=== PATIENT | female | born 1935 | race Caucasian/White ===

== ENCOUNTER 2024-02-14 07:16 | Inpatient (IN) | payer OTHER ==
[~2024-02-14] VITALS: Ht 149.9 cm; Wt 50.3 kg
[2024-02-14] MEDS ORDERED: ONDANSETRON HCL/PF 4 MG/2 ML VIAL ONE ×2 (08:09→08:13)
[2024-02-14] MEDS: ONDANSETRON HCL/PF - ER 4 MG/2 ML VIAL IV ONE (08:14)
[2024-02-14] MEDS: IV NS 0.9% 1,000 ML BAG IV ONE (08:14)
[2024-02-14 08:18] LABS: BASOPHILS % (AUTO) 0.4 % (0.0-2.0); EOSINOPHILS % (AUTO) 0.1 % (0.0-6.0); HEMATOCRIT 41 % (33-45); HEMOGLOBIN 13.7 g/dL (11.5-14.8); LYMPHOCYTES # (AUTO) 0.6 K/uL (0.8-4.8); LYMPHOCYTES % (AUTO) 9.3 % (20.0-44.0); MEAN CORPUSCULAR HEMOGLOBIN 29 PG (26.0-33.0); MEAN CORPUSCULAR HGB CONC 33 g/dl (31.0-36.0); MEAN CORPUSCULAR VOLUME 86 fL (82-100); NEUTROPHILS # (AUTO) 5.2 K/uL (1.8-8.9); NEUTROPHILS % (AUTO) 76.2 % (43.0-81.0); PLATELET COUNT (AUTO) 234 K/uL (150-450); RED BLOOD CELL COUNT(AUTO) 4.81 MIL/uL (4.0-5.2); RED CELL DISTRIBUTION WIDTH 14.8 % (11.5-15.0); WHITE BLOOD COUNT (AUTO) 6.8 K/uL (4.3-11.0)
[2024-02-14 08:27] LABS: CALCIUM, SERUM 8.5 mg/dL (8.5-10.1); CARBON DIOXIDE 31 mmol/L (21-32); CHLORIDE 92 mmol/L (98-107); CREATININE 0.9 mg/dL (0.6-1.3); GLUCOSE 106 mg/dL (74-106); POTASSIUM 2.9 mmol/L (3.5-5.1); SODIUM SERUM 132 mmol/L (136-145); UREA NITROGEN, BLOOD 18 mg/dL (7-18)
[2024-02-14] MEDS ORDERED: TRAZ-182 PO (08:34)
[2024-02-14] MEDS ORDERED: ROSU5TAB PO (08:34)
[2024-02-14] MEDS ORDERED: LATA2.5D2 EACHEYE (08:34)
[2024-02-14] MEDS ORDERED: HYDR25TA4 PO (08:34)
[2024-02-14] MEDS ORDERED: DORZ10DR13 EACHEYE (08:35)
[2024-02-14] MEDS ORDERED: PANT40TA2 PO (08:35)
[2024-02-14] MEDS ORDERED: ACET-868 PO (08:35)
[2024-02-14] MEDS ORDERED: DORZ10DR11 EACHEYE (08:35)
[2024-02-14] MEDS ORDERED: PROP15DR EACHEYE (08:35)
[2024-02-14 08:39] LABS: NT-PRO BNP 646 pg/mL (0-125)
[2024-02-14 09:56] LABS: APPEARANCE,URINE CLEAR (CLEAR); BILIRUBIN,URINE NEGATIVE (NEGATIVE); BLOOD, URINE NEGATIVE Ery/uL (NEGATIVE); COLOR,URINE YELLOW (YELLOW); KETONES,URINE NEGATIVE (NEGATIVE); LEUKOCYTE ESTERASE ,URINE NEGATIVE (NEGATIVE); NITRITE, URINE NEGATIVE (NEGATIVE); PROTEIN,URINE NEGATIVE (NEGATIVE); UGLUCOSE NEGATIVE (NEGATIVE); UROBILINOGEN,URINE 0.2 EU/dL (0.2)
[2024-02-14] MEDS ORDERED: IOHEXOL-300 100 ML VIAL IV ONE (09:58)
[2024-02-14] MEDS ORDERED: IV NS 0.9% 250 ML IV ONE (10:00)
[2024-02-14] MEDS ORDERED: POTASSIUM CL. PREMIX PERIPHER. 50 ML ONE (10:19)
[2024-02-14] MEDS: POTASSIUM CL. PREMIX PERIPHER. 50 ML IV SCH (10:33)
[2024-02-14] MEDS ORDERED: ONDANSETRON HCL/PF 4 MG/2 ML VIAL IVP PRN (12:00)
[2024-02-14] MEDS ORDERED: Z GUARD REMEDY 4 OZ OINT TP PRN (12:00)
[2024-02-14] MEDS ORDERED: MAG HYDROX/AL HYDROX/SIMETH 30 ML UDC PO PRN (12:00)
[2024-02-14] MEDS ORDERED: CEFTRIAXONE 1 G in IV D5W 50 ML IV SCH (12:00)
[2024-02-14] MEDS ORDERED: MAGNESIUM HYDROXIDE 30 ML UDC PO PRN (12:00)
[2024-02-14] MEDS: AZITHROMYCIN 500 MG in IV D5W 250 ML IV SCH (12:44)
[2024-02-14] MEDS: ENOXAPARIN SODIUM 30 MG/0.3 ML DISP.SYRIN SQ SCH (12:44)
[2024-02-14] MEDS: CEFTRIAXONE 1 G in IV D5W 50 ML IV SCH (15:01)
[2024-02-14 16:00] VITALS: BP 118/61; TEMP 98.1; O2SAT 95
[2024-02-14] MEDS: IV D5/0.45 NACL 1,000 ML IV PRN (17:12)
[2024-02-14 20:00] VITALS: BP 126/71; TEMP 98.4; O2SAT 98
[2024-02-14] MEDS: TIMOLOL MAL/DORZOLAM HCL OPHTH 10 ML BOTTLE EACHEYE SCH (20:30)
[2024-02-14] MEDS ORDERED: TIMOLOL MAL/DORZOLAM HCL OPHTH 10 ML BOTTLE EACHEYE SCH (20:30)
[2024-02-14] MEDS ORDERED: TRAZODONE 50 MG TABLET PO PRN (20:30)
[2024-02-14] MEDS: LATANOPROST EYE DROP 0.005% 2.5 ML BOTTLE EACHEYE SCH (20:30)
[2024-02-14] MEDS ORDERED: ACETAMINOPHEN 325 MG TABLET PO PRN (20:30)
[2024-02-14] MEDS: ZOLPIDEM TARTRATE 5 MG TABLET PO PRN (21:59)
[2024-02-15 03:15] VITALS: BP 128/71; TEMP 98; O2SAT 95
[2024-02-15] MEDS: ACETAMINOPHEN 325 MG TABLET PO PRN (04:16)
[2024-02-15 06:00] LABS: BASOPHILS % (AUTO) 0.3 % (0.0-2.0); EOSINOPHILS % (AUTO) 0.7 % (0.0-6.0); HEMATOCRIT 37 % (33-45); HEMOGLOBIN 12.3 g/dL (11.5-14.8); LYMPHOCYTES # (AUTO) 0.9 K/uL (0.8-4.8); LYMPHOCYTES % (AUTO) 19.8 % (20.0-44.0); MEAN CORPUSCULAR HEMOGLOBIN 28 PG (26.0-33.0); MEAN CORPUSCULAR HGB CONC 33 g/dl (31.0-36.0); MEAN CORPUSCULAR VOLUME 86 fL (82-100); MONOCYTES # (AUTO) 0.8 K/uL (0.1-1.30); MONOCYTES % (AUTO) 19.2 % (2.0-12.0); NEUTROPHILS # (AUTO) 2.6 K/uL (1.8-8.9); PLATELET COUNT (AUTO) 214 K/uL (150-450); RED BLOOD CELL COUNT(AUTO) 4.34 MIL/uL (4.0-5.2); RED CELL DISTRIBUTION WIDTH 15.2 % (11.5-15.0); WHITE BLOOD COUNT (AUTO) 4.3 K/uL (4.3-11.0)
[2024-02-15 06:26] LABS: CALCIUM, SERUM 7.9 mg/dL (8.5-10.1); CARBON DIOXIDE 29 mmol/L (21-32); CHLORIDE 100 mmol/L (98-107); CREATININE 0.8 mg/dL (0.6-1.3); GLUCOSE 88 mg/dL (74-106); PHOSPHORUS 3.4 mg/dL (2.5-4.9); POTASSIUM 3.1 mmol/L (3.5-5.1); SODIUM SERUM 136 mmol/L (136-145); UREA NITROGEN, BLOOD 11 mg/dL (7-18)
[2024-02-15 07:44] LABS: BASOPHILS % (MANUAL) 0 % (0.0-2.0); EOSINOPHILS % (MANUAL) 0 % (0-4); LYMPHOCYTES % (MANUAL) 17 % (16-48); MONOCYTES % (MANUAL) 18 % (0-11.0); NEUTROPHILS % (MANUAL) 65 (42-76); PLATELET ESTIMATE ADEQUATE; STOMATOCYTES 1+
[2024-02-15 08:00] VITALS: BP 116/53; TEMP 97.5; O2SAT 93
[2024-02-15] MEDS: PANTOPRAZOLE 40 MG TABLET.DR PO SCH (08:05)
[2024-02-15] MEDS: HYDROCHLOROTHIAZIDE 25 MG TABLET PO SCH (09:00)
[2024-02-15] MEDS: POTASSIUM CHLORIDE 20 MEQ TAB.PRT.SR PO SCH (10:08)
[2024-02-15] MEDS: METOCLOPRAMIDE HCL 10 MG TABLET PO SCH (11:16)
[2024-02-15] MEDS: AZITHROMYCIN 250 MG TABLET PO SCH (11:19)
[2024-02-15 16:00] VITALS: BP_SYST 127; BP_SYST 150; BP_DIAS 113; BP_DIAS 68; TEMP 97.9; O2SAT 95
[2024-02-15] MEDS ORDERED: LOPERAMIDE HCL (2 MG CAP) 2 MG CAPSULE PO PRN (16:30)
[2024-02-15] MEDS: LOPERAMIDE HCL (2 MG CAP) 2 MG CAPSULE PO ONE (16:35)
[2024-02-15 20:00] VITALS: BP 130/54; TEMP 98.8; O2SAT 100
[2024-02-16 08:36] VITALS: BP 136/62; TEMP 98.5; O2SAT 94
[2024-02-16 09:31] LABS: BASOPHILS % (AUTO) 0.3 % (0.0-2.0); EOSINOPHILS # (AUTO) 0.1 K/uL (0.0-0.7); EOSINOPHILS % (AUTO) 1.4 % (0.0-6.0); HEMATOCRIT 41 % (33-45); HEMOGLOBIN 13.2 g/dL (11.5-14.8); LYMPHOCYTES # (AUTO) 0.8 K/uL (0.8-4.8); LYMPHOCYTES % (AUTO) 17.1 % (20.0-44.0); MEAN CORPUSCULAR HEMOGLOBIN 28 PG (26.0-33.0); MEAN CORPUSCULAR HGB CONC 33 g/dl (31.0-36.0); MEAN CORPUSCULAR VOLUME 87 fL (82-100); MONOCYTES # (AUTO) 0.6 K/uL (0.1-1.30); MONOCYTES % (AUTO) 13.4 % (2.0-12.0); NEUTROPHILS # (AUTO) 3.1 K/uL (1.8-8.9); NEUTROPHILS % (AUTO) 67.8 % (43.0-81.0); PLATELET COUNT (AUTO) 222 K/uL (150-450); RED CELL DISTRIBUTION WIDTH 14.9 % (11.5-15.0); WHITE BLOOD COUNT (AUTO) 4.5 K/uL (4.3-11.0)
[2024-02-16 09:41] LABS: CALCIUM, SERUM 8.4 mg/dL (8.5-10.1); CARBON DIOXIDE 29 mmol/L (21-32); CHLORIDE 98 mmol/L (98-107); CREATININE 0.8 mg/dL (0.6-1.3); GLUCOSE 105 mg/dL (74-106); POTASSIUM 3.3 mmol/L (3.5-5.1); SODIUM SERUM 134 mmol/L (136-145); UREA NITROGEN, BLOOD 9 mg/dL (7-18)
[2024-02-16] MEDS: POTASSIUM CHLORIDE 20 MEQ TAB.PRT.SR PO ONE (09:56)
[2024-02-16] MEDS: LANOLIN/MIN OIL/PETROLAT,WHT 3.5 GM TUBE EACHEYE SCH (11:33)
[2024-02-16 16:04] VITALS: BP 146/62; TEMP 98.4; O2SAT 94
[2024-02-16] MEDS: BENZONATATE 100 MG CAPSULE PO PRN (16:16)
[2024-02-16] MEDS: ENSURE ENLIVE 237 ML LIQUID (VANILLA) PO SCH (17:40)
[2024-02-16 20:00] VITALS: BP 115/45; TEMP 98.8; O2SAT 95
[2024-02-17 09:20] VITALS: BP 134/83; TEMP 97.9; O2SAT 96
[2024-02-17] MEDS: Potassium Chloride 20 MEQ in IV D5/ 0.9% NACL 1,000 ML IV SCH (09:52)
[2024-02-17] MEDS ORDERED: BARIUM SULFATE 98% 135 ML SUSP.RECON PO ONE (14:45)
[2024-02-17] MEDS ORDERED: SIMETHICONE/SOD BICARB/CIT AC 1 EACH GRAN.EF.PK PO ONE (14:51)
[2024-02-17 16:31] VITALS: BP 163/66; TEMP 97.5; O2SAT 94
[2024-02-17 20:00] VITALS: BP 139/56; TEMP 98.6; O2SAT 95
[2024-02-18 10:44] VITALS: BP 134/52; TEMP 97.3; O2SAT 94
[2024-02-18 11:29] LABS: BASOPHILS % (AUTO) 0.4 % (0.0-2.0); EOSINOPHILS % (AUTO) 1.1 % (0.0-6.0); HEMATOCRIT 40 % (33-45); HEMOGLOBIN 13.1 g/dL (11.5-14.8); LYMPHOCYTES # (AUTO) 0.9 K/uL (0.8-4.8); LYMPHOCYTES % (AUTO) 23.4 % (20.0-44.0); MEAN CORPUSCULAR HEMOGLOBIN 29 PG (26.0-33.0); MEAN CORPUSCULAR HGB CONC 33 g/dl (31.0-36.0); MEAN CORPUSCULAR VOLUME 87 fL (82-100); MONOCYTES # (AUTO) 0.5 K/uL (0.1-1.30); MONOCYTES % (AUTO) 13.5 % (2.0-12.0); NEUTROPHILS # (AUTO) 2.4 K/uL (1.8-8.9); NEUTROPHILS % (AUTO) 61.6 % (43.0-81.0); PLATELET COUNT (AUTO) 205 K/uL (150-450); RED BLOOD CELL COUNT(AUTO) 4.58 MIL/uL (4.0-5.2); RED CELL DISTRIBUTION WIDTH 14.6 % (11.5-15.0); WHITE BLOOD COUNT (AUTO) 3.9 K/uL (4.3-11.0)
[2024-02-18 11:37] LABS: CALCIUM, SERUM 8.4 mg/dL (8.5-10.1); CARBON DIOXIDE 30 mmol/L (21-32); CHLORIDE 101 mmol/L (98-107); CREATININE 0.6 mg/dL (0.6-1.3); GLUCOSE 92 mg/dL (74-106); MAGNESIUM 1.9 mg/dL (1.8-2.4); POTASSIUM 3.1 mmol/L (3.5-5.1); SODIUM SERUM 138 mmol/L (136-145); UREA NITROGEN, BLOOD 8 mg/dL (7-18)
[2024-02-18 16:00] VITALS: BP 146/80; TEMP 98.4; O2SAT 95
[2024-02-18] MEDS ORDERED: Potassium Chloride 20 MEQ in IV D5/ 0.9% NACL 1,000 ML IV SCH (21:31)
== END 2024-02-18 18:30 | DRG 392 ==
LOC: ER 07:16 → MED 09:56
PROVIDERS: ADMIT Internal Medicine; ATTEND Internal Medicine
DX: K44.9 Diaphragmatic hernia without obstruction or gangrene (principal); E87.1 Hypo-osmolality and hyponatremia; F33.9 Major depressive disorder, recurrent, unspecified; E46 Unspecified protein-calorie malnutrition; E87.6 Hypokalemia; G89.29 Other chronic pain; I10 Essential (primary) hypertension; R53.1 Weakness; K76.89 Other specified diseases of liver; E11.9 Type 2 diabetes mellitus without complications; M06.9 Rheumatoid arthritis, unspecified; R26.9 Unspecified abnormalities of gait and mobility; I70.0 Atherosclerosis of aorta; R63.4 Abnormal weight loss; R05.9 Cough, unspecified; M79.10 Myalgia, unspecified site; Z68.22 Body mass index [BMI] 22.0-22.9, adult; Z20.822 Contact with and (suspected) exposure to COVID-19; Z91.81 History of falling
CPT/HCPCS: 36415; 71045-TC; 71250-TC; 72020-TC; 74230-TC; 80048-TC; 83735-TC; 83880; 84100-TC; 84484-TC; 85025-TC; 97110-TC; 97116-TC; 97530-TC; A4223; G0378; J0456; J0696; J1650; J2405; J3480; J3490; J7030; J7040; J7042; J7050; J7060; J8597; Q9967